=== PATIENT | male | born 1970 ===

== ENCOUNTER 2023-02-01 11:52 | Inpatient (IN) | payer OTHER ==
[~2023-02-01] VITALS: Ht 165.1 cm; Wt 72.6 kg
[2023-02-02] MEDS ORDERED: TAMS0.4C PO (11:13)
[2023-02-09] MEDS ORDERED: INTESTINEX680 M1 PO (11:07)
[2023-02-09] MEDS ORDERED: LEVSIN/SL0.125 MG SL (11:07)
[2023-02-09] MEDS ORDERED: PEPCID AC20 MG PO (11:07)
[2023-02-09] MEDS ORDERED: KETO10TA2 PO (11:07)
== END 2023-02-09 13:03 | disposition home or self-care (01) | DRG 331 ==
LOC: SURH 02-06 06:12 → O/R 02-06 06:12 → SURH 02-06 09:15
PROVIDERS: ADMIT Surgery; ATTEND Surgery
PROC: 0DJD8ZZ Inspection of Lower Intestinal Tract, Via Natural or Artificial Opening Endoscopic (ICD-10-PCS; 2023-02-06)
PROC: 0DTN4ZZ Resection of Sigmoid Colon, Percutaneous Endoscopic Approach (ICD-10-PCS; principal; 2023-02-06 11:30)
DX: K57.20 Diverticulitis of large intestine with perforation and abscess without bleeding (principal); Z20.822 Contact with and (suspected) exposure to COVID-19